=== PATIENT | female | born 1975 | race African-American/Black ===

== ENCOUNTER 2020-01-14 12:19 | Emergency (ER) | payer SELFPAY ==
[~2020-01-14] VITALS: Ht 167.6 cm; Wt 69.2 kg
[2020-01-14] MEDS ORDERED: ASPIRIN CHEWABLE 81 MG TABLET. PO ONE (12:45)
--- NOTE | 2020-01-14 13:09 | PHYS DOC ---
Past History Past Medical History: Anxiety Past Surgical History: Tubal ligation Alcohol Use: None Adult General Chief Complaint Chief Complaint: SHORTNESS OF BREATH HPI HPI Patient is a 44-year-old female who presents to the ER for shortness of breath. Onset was today while at work. Patient reports wearing her mask and developing left-sided chest tightness and associated shortness of breath. Patient admits history of anxiety which worsened the symptoms. Patient removed herself from work environment and tried relaxation and deep breathing techniques without any relief. Nothing known made worse. Chest pain described as left sternal and is painful to palpation. Severity is 6/10 without radiation. Timing of symptoms have been intermittent since onset. Associated symptoms include loose stools that started 3 days ago. 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 She is exposed to numerous individuals on a daily basis. Despite practicing good hygiene herself, she is unsure if she has had any contacts with any COVID positive patients or known PUIs. Review of Systems Review of Systems Fourteen body systems of review of systems have been reviewed. See HPI for pertinent positives and negative responses, other kaur all other systems are negative, non-pertinent or non-contributory Current Medications Current Medications Current Medications Medications (Trade) Dose Ordered Sig/Tarsha Start Time Stop Time Status Last Admin Dose Admin Aspirin (Aspirin Chewable) 324 mg 1X ONCE 01/14/20 12:45 01/14/20 12:46 DC Allergies Allergies Allergies Coded Allergies Type Severity Reaction Last Updated Verified No Known Drug Allergies 01/14/20 No Physical Exam Physical Exam Constitutional: Well developed, well nourished, no acute distress, non-toxic appearance. [] HENT: Normocephalic, atraumatic, bilateral external ears normal, oropharynx moist, no oral exudates, nose normal. [] Eyes: PERRLA, EOMI, conjunctiva normal, no discharge. [] Neck: Normal range of motion, no tenderness, supple, no stridor. [] Cardiovascular:Heart rate regular rhythm, no murmur rubs or gallops. Left parasternal chest wall tenderness to palpation [] Lungs & Thorax: Bilateral breath sounds clear to auscultation [] Abdomen: Bowel sounds normal, soft, no tenderness, no masses, no pulsatile senia s. [] Skin: Warm, dry, no erythema, no rash. [] Back: No tenderness, no CVA tenderness. [] Extremities: No tenderness, no cyanosis, no clubbing, ROM intact, no edema. [] Neurologic: Alert and oriented X 3, normal motor function, normal sensory function, no focal deficits noted. [] Psychologic: Affect normal, judgement normal, mood normal. [] Current Patient Data Vital Signs Vital Signs Date Time Temp Pulse Resp B/P (MAP) Pulse Ox O2 Delivery O2 Flow Rate FiO2 01/14/20 12:29 98.2 70 14 121/72 (88) 100 Room Air Lab Results Laboratory Tests Test 01/14/20 13:02 01/14/20 13:49 White Blood Count 3.9 x10^3/uL Red Blood Count 5.19 x10^6/uL Hemoglobin 10.6 g/dL Hematocrit 35.1 % Mean Corpuscular Volume 68 fL Mean Corpuscular Hemoglobin 21 pg Mean Corpuscular Hemoglobin Concent 30 g/dL Red Cell Distribution Width 25.0 % Platelet Count 173 x10^3/uL Neutrophils (%) (Auto) 46 % Lymphocytes (%) (Auto) 37 % Monocytes (%) (Auto) 13 % Eosinophils (%) (Auto) 4 % Basophils (%) (Auto) 1 % Neutrophils # (Auto) 1.8 x10^3uL Lymphocytes # (Auto) 1.4 x10^3/uL Monocytes # (Auto) 0.5 x10^3/uL Eosinophils # (Auto) 0.2 x10^3/uL Basophils # (Auto) 0.0 x10^3/uL Platelet Estimate Adequate Large Platelets Occ Hypochromasia Mod Anisocytosis Mod Microcytosis Mod Tear Drop Cells Present Ovalocytes Present Sodium Level 140 mmol/L Potassium Level 4.0 mmol/L Chloride Level 105 mmol/L Carbon Dioxide Level 27 mmol/L Anion Gap 8 Blood Urea Nitrogen 12 mg/dL Creatinine 1.0 mg/dL Estimated GFR (Cockcroft-Gault) 73.6 BUN/Creatinine Ratio 12 Glucose Level 74 mg/dL Calcium Level 8.9 mg/dL Magnesium Level 1.9 mg/dL Total Bilirubin 0.2 mg/dL Aspartate Amino Transf (AST/SGOT) 16 U/L Alanine Aminotransferase (ALT/SGPT) 14 U/L Alkaline Phosphatase 67 U/L Troponin I Quantitative < 0.017 ng/mL OT-Trm-[id number]-Type Natriuretic Peptide 69 pg/mL Total Protein 7.5 g/dL Albumin 3.6 g/dL Albumin/Globulin Ratio 0.9 Lipase 193 U/L Serum Test, Qualitative Negative Urine Collection Type Unknown Urine Color Straw Urine Clarity Clear Urine pH 6.0 Urine Specific [place] <=1.005 Urine Protein Neg Urine Glucose (UA) Neg mg/dL Urine Ketones (Stick) Neg mg/dL Urine Blood Neg Urine Nitrite Neg Urine Bilirubin Neg Urine Urobilinogen Dipstick 0.2 mg/dL Urine Leukocyte Esterase Neg Urine RBC Occ /HPF Urine WBC 1-4 /HPF Urine Squamous Epithelial Cells Few /LPF Urine Bacteria 0 /HPF Urine Opiates Screen Neg Urine Methadone Screen Neg Urine Barbiturates Neg Urine Phencyclidine Screen Neg Urine Amphetamine/Methamphetamine Neg Urine Benzodiazepines Screen Neg Urine Cocaine Screen Neg Urine Cannabinoids Screen Neg Urine Ethyl Alcohol Neg Current Medications Medications (Trade) Dose Ordered Sig/Tarsha Route PRN Reason Start Time Stop Time Status Last Admin Dose Admin Aspirin (Aspirin Chewable) 324 mg 1X ONCE PO 01/14/20 12:45 01/14/20 12:46 DC 01/14/20 13:07 EKG EKG EKG ordered and interpreted by myself at 1259 hrs. as normal sinus rhythm at 61 bpm, unremarkable intervals, no axis deviation, no ischemic findings, no fasc icular blocks, no STEMI Radiology/Procedures Radiology/Procedures PROCEDURE: PORTABLE CHEST 1V Single view chest dated 01/14/2020: No comparison available. Clinical Indication: Shortness of breath. Findings: Single upright portable exam of the chest was performed. Heart size and mediastinal contours are within normal limits given technique. The lungs are clear without evidence of focal consolidation. Vascular interstitium is within normal limits. Impression:: Negative portable chest. Electronically signed by: Aaron Vieira MD (01/14/2020 1:14 PM) [facility] Course & Med Decision Making Course & Med Decision Making Patient seen after self ambulating to exam room in ED Hemodynamically stable, nontoxic-appearing Comprehensive history and physical exam obtained, subsequent lab and imaging studies ordered 325 mg of aspirin administered Reviewing case, patient likely is suffering from costochondritis which is exacerbated by her anxiety. Nonetheless, she is high risk for COVID-19 and I feel she requires testing today given her symptoms ED course reviewed. Improvement in patient's symptoms. No acute issues observed after reevaluating patient several times in ED, PERC negative. Patient admits her anxiety probably worsened presenting symptoms, I agree with this Discussed my physical exam, lab, imaging findings and assessment with patient, recommended discharge home with continued supportive care such as heat and NSAIDs for musculoskeletal wall tenderness Also discussed need to self quarantine until COVID 19 results in the next 24 to 48 hours. Patient agreeable Strict return precautions discussed at length with good understanding by patient, all questions and concerns addressed prior to ED departure back home in stable condition Dragon Disclaimer Dragjami Disclaimer This electronic medical record was generated, in whole or in part, using a voice recognition dictation system. COVID-19 Patient Risks: Age 65 or older: No Sign of co-morbidity: No Exp to person + for COVID: No Exp to PUI: Yes Travel from affected area: No Lower respiratory symptoms: No Fever: No Other: Yes (Diarrhea) PPE Use: Full PPE with N95 mask or PAPR: Yes The HEART Score for CP Pts HEART Score for Chest Pain: HEART Score for Chest Pain Response (Comments) Value History Slighlty/Non-Suspicious 0 ECG Normal 0 Age < 45 0 Risk Factors No Risk Factors 0 Troponin < Normal Limit 0 Total 0 Risk Factors: Risk Factors: DM, Current or recent (<one month) smoker, HTN, HLP, family history of CAD, obesity. Risk Scores: Score 0 - 3: 2.5% MACE over next 6 weeks - Discharge Home Score 4 - 6: 20.3% MACE over next 6 weeks - Admit for Clinical Observation Score 7 - 10: 72.7% MACE over next 6 weeks - Early Invasive Strategies Departure Departure: Impression: Primary Impression: Atypical chest pain Additional Impression: Chronic anemia Disposition: 01 HOME/RESIDENCE PRIOR TO ADM Condition: STABLE Referrals: PCP,NO (PCP) As discussed, please follow-up with your PCP in upcoming 7 days to ensure symptomatic improvement Patient Instructions: Costochondritis, Meloxicam tablets, Musculoskeletal Pain Additional Instructions: Short You were evaluated in the Emergency Department today for a cough. Your evaluation suggests a viral infection such as Coronavirus. It is important that you continue to self isolate and practice good hygiene at home. Please follow up with your primary care physician as discussed. Return to the Emergency Department if you experience worsening cough, fever, shortness of breath, recurrent vomiting, lethargy, or any other concerning symptoms. Thank you for choosing us for your care. Usted fue evaluado en el Departamento de Emergencia hoy por tos. Cannon evaluacin sugiere dominique infeccin viral sam el coronavirus. Es importante que contine aislndose y practicando dominique buena higiene en el hogar. Ramy un seguimiento con cannon mdico de atencin primaria sam se discuti. Regrese al Departamento de Emergencias si experimenta un empeoramiento de la tos, fiebre, falta de aliento, vmitos recurrentes, letargo o cualquier otro s ntoma relacionado. Cristiane por elegir nosotros para cannon atencin. Home Care Instructions for Patients with Mild Respiratory Infection Most people with respiratory infections like colds, the flu, and Coronavirus Disease (COVID-19) will have mild illness and can get better with appropriate home care and without the need to see a provider. People who are elderly, , or have a weak immune system, or other medical problem are at higher risk of more serious illness or complications. It is recommended that they carefully monitor their symptoms closely and seek medical care early if their symptoms get worse. TREATMENT AND MEDICAL CARE Treatment There is no specific treatment for most viruses including those that that cause the common cold and those that cause COVID-19. Sometimes there is treatment for the viruses that cause influenza if given early. Antibiotics treat infections caused by bacteria, but they do not work against viruses.Most people recover on their own from these viruses, including COVID-19. Here are steps that you can take to help you get better: Rest Drink plenty of fluids Take ymoh-gwp-bsotsed cold and flu medications to reduce fever and pain. Follow the instructions on the package, unless your doctor gave you instructions. Note that these medicines do not ``cure the illness and therefore do not stop you from spreading germs. Children should not be given medication that contains aspirin (acetylsalicylic acid) because it can cause a rare but serious illness called Corbin syndrome. Medicines without aspirin include acetaminophen (Tylenol) and ibuprofen (Advil, Motrin). Children younger than age 2 should not be given any ntrn-hyt-yvtlray cold medications without first speaking with a doctor.Seeking Medical Care You should seek medical care if you are not getting better within a week, or if your symptoms get worse. If you are elderly, , have a weak immune system, or other medical problems, call your doctor right away. It is best to call ahead of time to discuss your symptoms, if possible. This may allow you to receive the advice you need by phone. By avoiding a visit to a healthcare facility, you protect yourself from getting a new infection and protect others from catching an infection from you. If you do visit a healthcare facility, put on a mask to protect other patients and staff. It is recommended that you seek medical care for serious symptoms, such as: People with potentially life-threatening symptoms should call 911. If possible, put on a facemask before emergency medical services arrive.PROTECTING OTHERS Follow the steps below to help prevent the disease from spreading to people in your home and community.Stay home when you are sick Stay home - do not go to work, school, or public areas. Stay home for at least 24 hours after your symptoms have gone away without the use of fever-reducing medicines. If you must leave home while you are sick, try to avoid using public transportation, ride-shares, and taxis. Wear a mask if possible. Separate yourself from other people and animals in your home Stay in a specific room and away from other people in your home as much as possible. Use a separate bathroom, if available. Try to stay at least 6 feet from others. Do not handle pets or other animals while you are sick. Cover your coughs and sneezes Cover your mouth and nose with a tissue when you cough or sneeze. Throw used tissues in a lined trash can; immediately wash your hands. Avoid sharing personal household items Do not share dishes, drinking glasses, cups, eating utensils, towels, or bedding with other people or pets in your home. Wash them thoroughly with soap and water after use. Clean your hands often Wash your hands often with soap and water for at least 20 seconds. If soap and water are not available, clean your hands with an alcohol-based hand other sports coach or instructor that contains at least 60% alcohol, covering all surfaces of your hands and rubbing them together until they feel dry. Use soap and water if your hands are visibly dirty. Clean all ``high-touch surfaces every day High touch surfaces include counters, tabletops, doorknobs, bathroom fixtures, toilets, phones, keyboards, tablets, and bedside tables. Also, clean any surfaces that may have body fluids on them. Use a household cleaning spray or wipe, according to the product label instructions. COVID-19 (Novel Coronavirus) FAQs for Inquiring Patients What do you do if you are worried that you have been exposed to COVID-19 but are without any symptoms? If you develop symptoms that may indicate an infection, contact your physician. These include fever, cough, and shortness of breath. Testing is not available for asymptomatic individuals, regardless of travel history. To reduce the chance of getting sick use general infection prevention measures such as hand washing, covering your mouth and nose when you cough or sneeze and discarding any tissues carefully, and staying home when you are sick.Can exceptions be made for patients who are really worried and want to be tested? Presently testing is only available through the [facility] Department of Public Health and Centers for Disease Control and Prevention. Only patients who meet the updated COVID-19 PUI definition may be tested. We do not control or set the PUI definition or evaluation criteria. We are unable to provide testing to patients who do not meet the strict criteria. Should patients cancel or postpone an upcoming trip? The decision about travel is personal and should be made in the context of a persons underlying health conditions, reason for travel and necessity of travel. Travel insurance generally does not cover cancellations due to concerns of infectious disease outbreaks. The Center for Disease Control has a section on travel notices. Situations are changing frequently and you should monitor the site for updates. Should situations change rapidly in a foreign country while they are traveling, you could be subject to quarantine or restrictions upon return to the [place]. It is best to have a plan on how to return urgently if needed during a trip abroad. Because of how air circulates and is filtered on airplanes, most viruses do not spread easily on airplanes. CDC does not recommend use of facemasks during air travel.What other general precautions are advised? Patients should be instructed to: Avoid close contact with people who are sick. Avoid touching your eyes, nose and mouth. Stay home from work or school when they are sick. If you have a fever, you should remain home until 24 hours after fever resolves. Clean and disinfect frequently touched objects and surfaces using a regular household cleaning spray or wipe. Sneeze/cough into their elbow, not your hand. Practice frequent hand hygiene with soap and water (at least 20 seconds) or alcohol-based hand rub. Consider avoiding crowded places or mass gatherings, especially if you are immunocompromised or have chronic lung disease. There is no evidence to support transmission of COVID-19 from goods imported from [place]. Are there any special precautions that are recommended if I am ? There is not yet any information available about the susceptibility of women to COVID-19. As a general rule, women may be more susceptible to viral respiratory infections and at risk for more severe illness. The CDC guidance for COVID-19 and has answers to questions about transmission during delivery, as well as other situations. Should food, water, or medications be stockpiled? Should people telecommute? The CDC has excellent information on this. Please visit the CDCs guidance for getting your household ready for COVID-19. What should I do if I start feeling sick at work? And what should the workplace do for anyone exposed? Anyone who is sick with a fever and cough should stay home from work until at least 24 hours after resolution of fever, regardless of concerns for COVID-19. It is still influenza (flu) season and influenza remains far more common. Scripts Meloxicam (MOBIC) 7.5 Mg Tablet 1 TAB PO DAILY for PAIN, #30 TAB 1 Refill Prov: DARSHAN EDUARDO DO 01/14/20 Justification of Admission: Justification of Admission: Justification of Admission Dx: N/A Problem Qualifiers DARSHAN EDUARDO DO Jan 14, 2020 13:09
--- NOTE | 2020-01-14 13:17 | RAD ---
Single view chest dated 01/14/2020: No comparison available. Clinical Indication: Shortness of breath. Findings: Single upright portable exam of the chest was performed. Heart size and mediastinal contours are within normal limits given technique. The lungs are clear without evidence of focal consolidation. Vascular interstitium is within normal limits. Impression:: Negative portable chest. Electronically signed by: Aaron Vieira MD (01/14/2020 1:14 PM) [facility]
[2020-01-14 13:44] LABS: PREG TEST PT QUAL NEGATIVE (NEG)
[2020-01-14 13:47] LABS: CALCIUM 8.9 mg/dL (8.5-10.1); GFR 73.6
[2020-01-14 13:57] LABS: ALBUMIN 3.6 g/dL (3.4-5.0); ALBUMIN/GLOBULIN RATIO 0.9 (1.0-1.7); MAGNESIUM 1.9 mg/dL (1.8-2.4); TOTAL BILIRUBIN 0.2 mg/dL (0.2-1.0); TOTAL PROTEIN 7.5 g/dL (6.4-8.2)
[2020-01-14 14:07] LABS: BASO % 1 % (0-3); EOS # 0.2 x10^3/uL (0.0-0.7); EOS % 4 % (0-3); HEMATOCRIT 35.1 % (36.0-47.0); HEMOGLOBIN 10.6 g/dL (12.0-15.5); LYMPH # 1.4 x10^3/uL (1.0-4.8); LYMPH % 37 % (24-48); MEAN CORPUSCULAR HEMOGLOBIN 21 pg (25-35); MEAN CORPUSCULAR HGB CONC 30 g/dL (31-37); MEAN CORPUSCULAR VOLUME 68 fL (79-100); MONO # 0.5 x10^3/uL (0.0-1.1); MONO % 13 % (0-9); NEUT # 1.8 x10^3uL (1.8-7.7); NEUT % 46 % (31-73); PLATELET COUNT 173 x10^3/uL (140-400); RED BLOOD COUNT 5.19 x10^6/uL (3.50-5.40); WHITE BLOOD COUNT 3.9 x10^3/uL (4.0-11.0)
[2020-01-14 14:11] LABS: AMPHETAMINE/METHAMPHETAMINE NEG (NEG); BARBITURATES NEG (NEG); BENZODIAZEPINES NEG (NEG); CANNABINOIDS NEG (NEG); COCAINE NEG (NEG); METHADONE NEG (NEG); OPIATES NEG (NEG); PHENCYCLIDINE NEG (NEG)
[2020-01-14 14:17] LABS: BACTERIA,URINE 0 /HPF (0-FEW); BILIRUBIN,URINE NEG (NEG); CLARITY,URINE CLEAR; COLOR,URINE STRAW; GLUCOSE,URINE NEG (NEG); NITRITE,URINE NEG (NEG); RBC,URINE OCC /HPF (0-2); SQUAMOUS EPITHELIAL CELL,UR FEW /LPF; UROBILINOGEN,URINE 0.2 mg/dL (0.2 mg/dL)
[2020-01-14 14:22] LABS: PLT ESTIMATE ADEQUATE (ADEQUATE)
[2020-01-14 14:23] LABS: ANISOCYTOSIS MOD; HYPOCHROMIA MOD; MICROCYTOSIS MOD; OVALOCYTES PRESENT
[2020-01-14 14:24] LABS: TEAR DROP CELLS PRESENT
[2020-01-14] MEDS ORDERED: MELO7.5T5 PO (14:33)
[2020-01-14 14:40] VITALS: BP 132/65
--- NOTE | 2020-01-14 15:22 | EKG ---
[address] [address] Test Date: 2020-01-14 Test Time: 12:47:24 Pat Name: ZOLTAN MITTAL Department: Room: Gender: F [employer]ent Scout: PIEDAD : 1975 Requested By: DARSHAN EDUARDO Order Number: [id number] Reading MD: Measurements Intervals [place] Rate: 61 P: 66 WI: 166 QRS: 68 QRSD: 86 T: 49 QT: 402 QTc: 406 Interpretive Statements SINUS RHYTHM NORMAL ECG RI6.02 No previous ECG available for comparison
--- NOTE | 2020-01-16 10:22 | NUR ---
IP: notified patient of COVID result.
== END 2020-01-14 14:38 | disposition home or self-care (01) ==
LOC: ER 12:19
DX: R07.89 Other chest pain (principal); D64.89 Other specified anemias; F41.9 Anxiety disorder, unspecified; Z20.828 Contact with and (suspected) exposure to other viral communicable diseases
CPT/HCPCS: 36415; 71045; 80053; 80307; 81001; 83690; 83735; 83880; 84484; 84703; 85025; 93005; 99285; U0003

== ENCOUNTER 2020-05-13 13:11 | Emergency (ER) | payer SELFPAY ==
[~2020-05-13] VITALS: Ht 167.6 cm; Wt 69.2 kg
[~2020-05-13 13:11] MED LIST: MELO7.5T5 PO
[2020-05-13 13:17] VITALS: BP 146/87
[2020-05-13] MEDS ORDERED: NAPR-514 PO (13:56)
[2020-05-13] MEDS ORDERED: HYDR-3165 PO (13:56)
[2020-05-13] MEDS ORDERED: SULF1TAB23 PO (13:56)
--- NOTE | 2020-05-13 13:56 | PHYS DOC ---
Past History Past Medical History: Anxiety (ESHA GARCIA APRN) Past Surgical History: Tubal ligation (ESHA GARCIA APRN) Alcohol Use: None (ESHA GARCIA APRN) Adult General Chief Complaint Chief Complaint: VAGINAL PROBLEM HPI HPI Patient is a 44-year-old female patient presenting to the ED today complaining of left labia Bartholin cyst she has had for 2 days. Patient denies any drainage from the cyst. She states she has history of Bartholin cyst for the last 10 years. Denies any fever. Denies any drainage. (ESHA GARCIA APRN) Review of Systems Review of Systems Constitutional: Denies fever or chills [] GI: Denies abdominal pain, nausea, vomiting, bloody stools or diarrhea [] : Denies dysuria or hematuria [] Musculoskeletal: Denies back pain or joint pain [] Integument: Left labia bartholin cyst Neurologic: Denies headache, focal weakness or sensory changes [] All other systems were reviewed and found to be within normal limits, except as documented in this note. (ESHA GARCIA APRN) Allergies Allergies Allergies Coded Allergies Type Severity Reaction Last Updated Verified No Known Drug Allergies 01/14/20 No (ESHA GARCIA APRN) Physical Exam Physical Exam Constitutional: Well developed, well nourished, no acute distress, non-toxic appearance. [] Abdomen: Bowel sounds normal, soft, no tenderness, no masses, no pulsatile masses. [] Female Inner aspect of left labia majora with a small bartholin cyst with no redness no warmth, the cyst is very firm and not ready to drain Skin: Warm, dry, no erythema, no rash. [] Back: No tenderness, no CVA tenderness. [] Extremities: No tenderness, no cyanosis, no clubbing, ROM intact, no edema. [] Neurologic: Alert and oriented X 3, normal motor function, normal sensory function, no focal deficits noted. [] Psychologic: Affect normal, judgement normal, mood normal.. (ESHA GARCIA APRN) EKG EKG [] (ESHA GARCIA APRN) Radiology/Procedures Radiology/Procedures [] (ESHA GARCIA APRN) Heart Score Risk Factors: Risk Factors: DM, Current or recent (<one month) smoker, HTN, HLP, family history of CAD, obesity. Risk Scores: Risk Factors: DM, Current or recent (<one month) smoker, HTN, HLP, family history of CAD, obesity. (ESHA GARCIA APRN) Course & Med Decision Making Course & Med Decision Making Pertinent Labs and Imaging studies reviewed. (See chart for details) This is a 44-year-old female patient presenting to the ED today with left labia majora Bartholin cyst for 3 days. The cyst is not ready for draining there is no flactuance to it. Provided patient Dr. Charles BYNUM at [place] who has very good experience surgically fixing this type of bartholin cyst. Patient promised to call the doctor today and set up a follow-up appointment. Tetanus is up-to-date. (ESHA GARCIA APRN) Course & Med Decision Making I have reviewed the SCHOOL TRANSPORTATION DIRECTOR's note and plan of care. I was available for consultation as needed during the patient's visit in the emergency department. I agree with the clinical impression, plan, and disposition. (DARSHAN EDUARDO DO) Dragon Disclaimer Dragon Disclaimer This electronic medical record was generated, in whole or in part, using a voice recognition dictation system. (ESHA GARCIA APRN) Departure Departure: Impression: Primary Impression: Bartholin cyst Disposition: 01 DC HOME SELF CARE/HOMELESS Condition: STABLE Referrals: PCP,ROXY (PCP) Dr. Ced BYNUM [address] [facility] [address] Patient Instructions: Bartholin's Cyst and Abscess-Brief Additional Instructions: You have a Bartholin's cyst, continue applying warm compresses to the area. Please contact the provided APPARATUS LINEMAN today and set up a follow-up appointment with him. Take the prescribed medications as ordered. Scripts Naproxen (NAPROXEN) 500 Mg Tablet 1 TAB PO BID for pain, #14 TAB 0 Refills Prov: ESHA GARCIA APRN 05/13/20 Sulfamethoxazole/Trimethoprim (BACTRIM 400-80 MG TABLET) 1 Each Tablet 1 TAB PO BID for 7 Days, #14 TAB 0 Refills Prov: ESHA GARCIA APRN 05/13/20 Hydrocodone Bit/Acetaminophen (NORCO 5-325 TABLET) 1 Each Tablet 1 TAB PO Q6-8HRS, #18 TAB Prov: ESHA GARCIA APRN 05/13/20 ESHA GARCIA APRN May 13, 2020 13:56 DARSHAN EDUARDO DO May 13, 2020 16:50
== END 2020-05-13 14:23 | disposition home or self-care (01) ==
LOC: ER 13:11
DX: N75.0 Cyst of Bartholin's gland (principal); F41.9 Anxiety disorder, unspecified; Z98.51 Tubal ligation status
CPT/HCPCS: 99283